=== PATIENT | female | born 2000 | race Two or more races ===

== ENCOUNTER 2025-02-10 10:27 | Inpatient (IN) | payer OTHER ==
[~2025-02-10] VITALS: Ht 152.4 cm; Wt 104.3 kg
[2025-02-10] MEDS ORDERED: LEVOTHYROXINE25 MCG PO (11:23)
[2025-02-10] MEDS ORDERED: KETOROLAC TROMETHAMINE 60 MG VIAL IM STA (12:13)
[2025-02-10 12:55] LABS: BASO % 0.2 % (0.1-1.2); EOS # 0.02 (0.04-0.54); EOS % 0.1 % (0.7-7.0); LYMPH # 1.70 (1.18-3.74); LYMPH % 12.1 % (19.3-53.1); MEAN PLATELET VOLUME 10.70 fl (9.4-12.4); MONO # 1.29 (0.24-0.82); MONO % 9.2 % (4.7-12.5); NEUT # 10.99 (1.56-6.13); NEUT % 78.0 % (34.0-71.1); RED CELL DISTRIBUTION WIDTH 13.4 % (11.6-14.4)
[2025-02-10 13:23] LABS: ALT/SGPT 26.0 U/L (12-78); AST/SGOT 20.0 U/L (15-37); BILIRUBIN TOTAL 0.6 mg/dL (0.3-1.2); BUN CREA RATIO 10.0 (7.0-25.0); CREATININE SERUM 0.89 mg/dL (0.55-1.02); GFR 78.6; GLOBULINA 4.8 G/DL (2.4-3.5); GLUCOSE FASTING 96.0 mg/dL (65-100); OSMOLALITY SERUM 278.0 MOSM/KG (275-295)
[2025-02-10 14:00] LABS: URINE APPEARANCE Cloudy; URINE BILIRRUBIN Negative (NEGATIVE); URINE BLOOD NHT; URINE COLOR Yellow; URINE GLUCOSE Negative (NEGATIVE); URINE KETONE Negative (NEGATIVE); URINE LEUKOCYTE Large; URINE NITRATE Positive; URINE PROTEIN Trace (NEGATIVE); URINE UROBILINOGEN 1.0 E.U./dl
[2025-02-10 14:03] LABS: URINE EPITHELIAL CELLS 30.1 uL (0.0-38.8); URINE RBC 11.1 uL (0.0-20.8); URINE WBC 841.1 uL (0.0-23.2)
[2025-02-10 14:09] LABS: URINE BACTERIA > 9821.5 uL (0.0-1933); URINE CAST 0.58 uL (0.0-1.40)
[2025-02-10] MEDS ORDERED: PIPERACILLIN/TAZOBACTAM SODIUM 4.5 GM VIAL IV STA (15:53)
[2025-02-10] MEDS ORDERED: 0.9 % SODIUM CHLORIDE 1,000 ML IV STA (15:55)
[2025-02-10] MEDS ORDERED: CEFTRIAXONE SODIUM 2,000 MG in 0.9 % SODIUM CHLORIDE 100 ML IV SCH (18:30)
[2025-02-10] MEDS ORDERED: ONDANSETRON HCL 4 MG in 0.9 % SODIUM CHLORIDE 50 ML IV PRN (18:30)
[2025-02-10] MEDS ORDERED: FAMOTIDINE/PF 20 MG in 0.9 % SODIUM CHLORIDE 8 ML IV PUSH SCH (18:30)
[2025-02-10] MEDS ORDERED: ACETAMINOPHEN 325 MG TABLET PO PRN (18:45)
[2025-02-10] MEDS ORDERED: KETOROLAC TROMETHAMINE 30 MG VIAL IM PRN (18:45)
[2025-02-10] MEDS ORDERED: 0.9 % SODIUM CHLORIDE 1,000 ML IV SCH (18:45)
[2025-02-11 03:02] VITALS: BP 109/72
[2025-02-11] MEDS ORDERED: LEVOTHYROXINE SODIUM 25 MCG TABLET PO SCH (06:00)
[2025-02-11 07:26] LABS: BASO % 0.2 % (0.1-1.2); EOS # 0.03 (0.04-0.54); EOS % 0.2 % (0.7-7.0); LYMPH # 2.35 (1.18-3.74); LYMPH % 18.4 % (19.3-53.1); MEAN PLATELET VOLUME 11.20 fl (9.4-12.4); MONO # 1.30 (0.24-0.82); MONO % 10.2 % (4.7-12.5); NEUT # 9.01 (1.56-6.13); NEUT % 70.7 % (34.0-71.1); RED CELL DISTRIBUTION WIDTH 13.4 % (11.6-14.4)
[2025-02-11 08:12] VITALS: BP 90/50; O2SAT 96
[2025-02-11] MEDS ORDERED: ENOXAPARIN SODIUM 40 MG/0.4 ML SYRINGE SUBCUTANEO SCH (09:00)
[2025-02-11 17:08] VITALS: BP 119/76
[2025-02-11 18:08] LABS: COVID-19 AG NEGATIVE (NEGATIVE)
[2025-02-11] MEDS ORDERED: GUAIFENESIN 100 MG/5 ML BLIST.PACK PO SCH (22:32)
[2025-02-12 00:14] VITALS: BP 111/71
[2025-02-12 08:59] VITALS: BP 121/84; O2SAT 98
[2025-02-12] MEDS ORDERED: GUAIFENESIN 100 MG/5 ML BLIST.PACK PO SCH (10:17)
[2025-02-12 11:47] LABS: BASO % 0.2 % (0.1-1.2); EOS # 0.13 (0.04-0.54); EOS % 1.1 % (0.7-7.0); LYMPH # 2.44 (1.18-3.74); LYMPH % 21.3 % (19.3-53.1); MEAN PLATELET VOLUME 11.00 fl (9.4-12.4); MONO # 1.19 (0.24-0.82); MONO % 10.4 % (4.7-12.5); NEUT # 7.61 (1.56-6.13); NEUT % 66.7 % (34.0-71.1); RED CELL DISTRIBUTION WIDTH 13.3 % (11.6-14.4)
[2025-02-12] MEDS ORDERED: BENZONATATE 200 MG CAPSULE PO NR (12:30)
[2025-02-12] MEDS ORDERED: ALBUTEROL SULFATE 3 ML/2.5 MG AMPUL.NEB IH PRN (12:45)
[2025-02-12 16:36] VITALS: BP 141/73
[2025-02-12] MEDS ORDERED: BENZONATATE 200 MG CAPSULE PO SCH (21:00)
[2025-02-13 01:51] VITALS: BP 119/77
[2025-02-13 09:08] VITALS: BP 113/76; O2SAT 97
== END 2025-02-13 14:55 | disposition home or self-care (01) | DRG 690 ==
LOC: ER 10:35 → MEDI 18:32
PROVIDERS: General Practice; Internal Medicine Infectious Disease; ADMIT Student in an Organized Health Care Education/Training Program; ATTEND Student in an Organized Health Care Education/Training Program
PROC: BT4JZZZ Ultrasonography of Kidneys and Bladder (ICD-10-PCS; principal; 2025-02-10)
PROC: 3E0F7GC Introduction of Other Therapeutic Substance into Respiratory Tract, Via Natural or Artificial Opening (ICD-10-PCS; 2025-02-12)
DX: N39.0 Urinary tract infection, site not specified (principal); D72.828 Other elevated white blood cell count; E03.9 Hypothyroidism, unspecified